=== PATIENT | female | born 1985 | race Asian ===

== ENCOUNTER 2016-12-04 16:08 | Emergency (ER) | payer SELFPAY ==
[~2016-12-04] VITALS: Ht 162.6 cm; Wt 49.4 kg
[2016-12-04 16:36] VITALS: BP_SYST 135
--- NOTE | 2016-12-04 17:21 | NUR ---
Patient states she feels improved, wishes to go home and hydrate. LWBS
== END 2016-12-04 17:21 | disposition left against medical advice (07) ==
LOC: EDBD 16:08 → SED 16:08
DX: R55 Syncope and collapse (principal); Z53.21 Procedure and treatment not carried out due to patient leaving prior to being seen by health care provider